=== PATIENT | female | born 1955 | race Caucasian/White ===

== ENCOUNTER 2016-07-03 12:20 | Emergency (ER) | payer OTHER ==
[~2016-07-03] VITALS: Ht 162.6 cm; Wt 117.9 kg
[~2016-07-03 12:20] MED LIST: AMOX-CLAV 875-1 EACH PO; DILAUDID2 M1 PO; LIDODERM1 EACH TOP
[2016-07-03 12:27] VITALS: BP 129/83
--- NOTE | 2016-07-03 13:34 | RADIOLOGY REPORT ---
EXAMINATION: XR WRIST, LEFT CLINICAL INFORMATION: Fall onto left wrist COMPARISON: None TECHNIQUE: Four views of the left wrist. FINDINGS: There is a minimally displaced, impacted intra-articular fracture of the distal radius. Radiocarpal alignment appears preserved. Surrounding soft tissue swelling is noted. There is moderate to severe degenerative change at the basal joint of the thumb. IMPRESSION: Minimally displaced intra-articular fracture of the distal radius.
--- NOTE | 2016-07-03 14:17 | ED UPPER/LOWER EXTREMITY COMPL ---
History of Present Illness General Chief Complaint: Hand or Wrist Injury Stated Complaint: BIBA FOR L WRIST INJURY AFTER TRIP AND FALL Source: patient, family Exam Limitations: no limitations Vital Signs & Intake/Output Vital Signs & Intake/Output Vital Signs Date Time Temp Pulse Resp B/P Pulse O2 O2 Flow FiO2 Ox Delivery Rate 07/03 1227 97.7 74 16 129/83 98 Room Air ED Intake and Output 07/04 0000 07/03 1200 Intake Total 0 Output Total Balance 0 Intake, Oral 0 Patient 260 lb Weight Allergies Coded Allergies: MDX - Cephalosporin (Cephalosporin) (Severe, RASH 04/02/13) ?CLEFOSPORINS - RASH MDX - SULFA (sulfonamide) (SULFA (SULFONAMIDE)) (Severe, ANAPHYLAXIS 03/31/13) MDX - Tetracycline (TETRACYCLINE) (Severe, RASH 03/31/13) MDX - Clarithromycin (From BIAXIN) (RASH 03/31/13) Reconcile Medications Amoxicillin/Clavulanate Potass (Amox-Clav 875-125 MG Tablet) 875 MG-125 MG TABLET 1 TAB PO DAILY INFX (Reported) Hydromorphone HCl (Dilaudid) 2 MG TABLET 1 TAB PO Q6H PRN pain Lidocaine (Lidoderm) 5 % ADH..PATCH 1 PAT TOP DAILY rib strain may wear up to 12 hours Triage Note: PT STATES SHE WENT TO TEENAGE [facility]AB[facility] HER PHONE TURNED AND TRIPPED OVER SOME TOYS ON THE FLOOR. PT FELL AND LANDED ON HER LEFT WRIST. PT STATES SHE HAD BILAT KNEE REPLACEMENTS. PT STATES SHE LANDED ON HER LEFT KNEE PT STATES SHE IS ABLE TO BEND HER KNEE AND SHE THINKS ITS OK. PT HAS DEFORMITY TO HER LEFT WRIST. Triage Nurses Notes Reviewed? yes HPI: 60-year-old female complains of moderate to severe left wrist pain and swelling after an injury that occurred earlier today. She tripped over some toys, falling on outstretched arm injuring her left wrist. She also fell on her bilateral knees, left knee, she has total knee replacements and is concerned about that. She has minimal pain to her left knee. She has no previous injuries to her left wrist. Pain is aching and throbbing moderate to severe worse with palpation and motion. No treatment thus far. Past History Travel History Traveled to [place] past 21 day No Medical History Any Pertinent Medical History? see below for history Respiratory: asthma Musculoskeletal: osteoporosis Surgical History Surgical History: left foot surgery Psychosocial History What is your primary language Croatian Tobacco Use: Never used ETOH Use: occasional use Illicit Drug Use: denies illicit drug use Family History Hx Contributory? No Review of Systems Review of Systems Constitutional: Reports: see HPI. EENTM: Reports: no symptoms. Respiratory: Reports: no symptoms. Cardiovascular: Reports: no symptoms. Gastrointestinal/Abdominal: Reports: no symptoms. Genitourinary: Reports: no symptoms. Musculoskeletal: Reports: see HPI. Skin: Reports: no symptoms. Neurological/Psychological: Reports: no symptoms. Hematologic/Endocrine: Reports: no symptoms. Immunological: Reports: no symptoms. All Other Systems: Reviewed and Negative Physical Exam Physical Exam General Appearance: well developed/nourished Comments: Well-developed well-nourished no apparent distress. HEENT: Atraumatic, extraocular motion intact Neck: Supple, no lymphadenopathy Back: Nontender Respiratory: No respiratory distress Extremities: No edema, full range of motion Neuro: Alert and oriented x3 Psych: Mood affect normal, normal memory normal judgment. Skin: Warm and dry, no rash on exposed skin Left Wrist with tenderness swelling ecchymosis about the distal radius region. Range of motion is severely limited due to pain. The fingers and hand are neurovascularly intact with sensation and motor grossly intact. There is no specific carpal or metacarpal or phalangeal tenderness. Skin is intact. Tendon function of the hand is normal. No elbow or shoulder tenderness, range of motion is full. Left knee examined, no swelling no ecchymosis, minimal lateral tibial plateau region tenderness. Full range of motion. Progress Differential Diagnosis: compartment syndrome, contusion, dislocation, fracture, tendon injury Plan of Care: Comminuted distal radius fracture. Patient placed in a volar splint, Ortho- Glass, well-padded well molded splint applied by myself with Juan Manuel bandages. Patient tolerated well without complications, neurovascular intact postprocedure. She declined anything for pain for home she has medication left over from previous surgeries. She will follow-up with her orthopedic surgeon Diagnostic Imaging: Viewed by Me: Radiology Read. Discussed w/RAD: Radiology Read. Radiology Impression: PATIENT: AJITH MANZO PRESENT AGE: 60 PATIENT ACCOUNT NO: [id number] : 54 LOCATION: [facility] ORDERING PHYSICIAN: KEITH CASPER (TBS) DO SERVICE DATE: 07/03/16 EXAM TYPE: RAD - XRY-WRIST COMPLETE-LEFT EXAMINATION: XR WRIST, LEFT CLINICAL INFORMATION: Fall onto left wrist COMPARISON: None TECHNIQUE: Four views of the left wrist. FINDINGS: There is a minimally displaced, impacted intra-articular fracture of the distal radius. Radiocarpal alignment appears preserved. Surrounding soft tissue swelling is noted. There is moderate to severe degenerative change at the basal joint of the thumb. IMPRESSION: Minimally displaced intra-articular fracture of the distal radius. DICTATED BY: JORDAN JARRELL MD DATE/TIME DICTATED:07/03/161322 CARTRIDGE GAUGER:FRANCES DATE/TIME TRANSCRIBED:07/03/161322 CONFIDENTIAL, DO NOT COPY WITHOUT Departure Departure Disposition: HOME OR SELF CARE Condition: Stable Clinical Impression Primary Impression: Wrist fracture, left Qualifiers: Encounter type: initial encounter Fracture type: closed Qualified Code: S62.102A - Fracture of unspecified carpal bone, left wrist, initial encounter for closed fracture Referrals: RAZIA GAMING,VANIA FELDER MD,THO Ryder (PCP/Family) Additional Instructions: Stay in splint, elevate, keep clean and dry, apply ice over the back of the wrist. Take pain medication as needed that you have at home Follow up with orthopedist in the next few days, call to make an appointment Departure Forms: Customer Survey General Discharge Information
[2016-07-06] MEDS ORDERED: ALENDRONATE SOD35 M2 PO (19:04)
[2016-07-06] MEDS ORDERED: ADVAIR 250-501 EACH INH (19:04)
[2016-07-06] MEDS ORDERED: MONTELUKAST SOD10 M1 PO (19:05)
[2016-07-06] MEDS ORDERED: PAROXETINE HCL20 M1 PO (19:06)
[2016-07-06] MEDS ORDERED: OXYCODONE-ACET1 EACH PO (19:07)
[2016-07-06] MEDS ORDERED: VENTOLIN HFA18 GM INH (19:07)
== END 2016-07-03 14:27 ==
LOC: ERH 12:20
DX: S52.572A Other intraarticular fracture of lower end of left radius, initial encounter for closed fracture (principal); W18.09XA Striking against other object with subsequent fall, initial encounter
CPT/HCPCS: 73110-LT

== ENCOUNTER → 2016-07-11 | Day surgery (SDC) | payer OTHER ==
[~2016-07-11] VITALS: Ht 162.6 cm; Wt 117.9 kg
[~2016-07-11] MED LIST changes: +ADVAIR 250-501 EACH INH; +ALENDRONATE SOD35 M2 PO; +MONTELUKAST SOD10 M1 PO; +OXYCODONE-ACET1 EACH PO; +PAROXETINE HCL20 M1 PO; +VENTOLIN HFA18 GM INH
--- NOTE | 2016-07-19 09:39 | Operative Report ---
Operative/Inv Procedure Report Surgery Date: 07/11/16 Name of Procedure: D&C hysteroscopy Pre-Operative Diagnosis: Thickened endometrium Post-Operative Diagnosis: Same Estimated Blood Loss: scant Surgeon/Spray Dry Operator: ELIZABETH AMBRIZ MD Anesthesia: moderate sedation Operative/Procedure Note Note: The patient was brought to the operating room placed on the OR table in the dorsal supine position she was given adequate anesthesia and repositioned in modified dorsal lithotomy. She was prepped and draped in usual sterile fashion. A weighted speculum was inserted into the vagina and a single-tooth tenaculum attached to the left exiting the cervix. Cervix was injected with 1% lidocaine to have cc in each quadrant. An endocervical curettage was performed revealing a small amount of tissue. The uterus is then sounded to 6 cm. The uterus was then serially dilated to accommodate the hysteroscope which was placed into the uterus and the saline infusion was activated. Shaggy endometrium was noted small polyp also well scope was removed and endocervical curettage is performed. This was removed patient was awakened and sent to recovery in good condition.
== END ==
LOC: STS 01:44
DX: R93.8 Abnormal findings on diagnostic imaging of other specified body structures (principal); N84.0 Polyp of corpus uteri; E66.9 Obesity, unspecified; Z68.42 Body mass index [BMI] 45.0-49.9, adult; J45.909 Unspecified asthma, uncomplicated
CPT/HCPCS: 88305; J2250